=== PATIENT | female | born 2000 | race Asian ===

== ENCOUNTER → 2019-06-24 | Emergency (ER) | payer SELFPAY ==
[~2019-06-24] VITALS: Ht 406.4 cm; Wt 45.4 kg
--- NOTE | 2019-06-24 20:19 | NUR ---
BILATERAL LOWER EXTREMITY INSECT BITE X2 DAYS. PT IS A0*4 ABMULATORY, IN NAD. AT BEDSIDE
[2019-06-24 20:40] VITALS: BP 122/80
== END | disposition home or self-care (01) ==
LOC: ER 20:24
DX: S80.862A Insect bite (nonvenomous), left lower leg, initial encounter (principal); S90.461A Insect bite (nonvenomous), right great toe, initial encounter; L03.116 Cellulitis of left lower limb; L03.031 Cellulitis of right toe; J45.909 Unspecified asthma, uncomplicated; Z60.2 Problems related to living alone; W57.XXXA Bitten or stung by nonvenomous insect and other nonvenomous arthropods, initial encounter; Y93.89 Activity, other specified; Y92.89 Other specified places as the place of occurrence of the external cause; Y99.8 Other external cause status